=== PATIENT | male | born 1945 | race Caucasian/White ===

== ENCOUNTER 2022-01-18 15:15 | Emergency (ER) | payer MEDICARE ==
[2022-01-18 16:02] LABS: Absolute Neutrophil Ct (ANC) 2.23 x10^3/uL (1.4-6.9); Basophil (Absolute #) 0.06 x10^3/uL (0-0.4); Eosinophil % 9.6 % (0.00-5.0); Eosinophil (Absolute #) 0.38 x10^3/uL (0-0.5); Hematocrit 32.6 % (42-50); Hemoglobin 11.4 g/dL (12.5-18.0); Lymphocyte (Absolute #) 0.93 x10^3/uL (1.0-4.6); Lymphocytes % 23.6 % (24.0-44.0); Mean Cell Volume 90.6 fL (78-100); Mean Corpuscular Hemoglobin 31.7 pg (26-32); Mean Platelet Volume 8.7 fL (7.5-11.0); Monocyte (Absolute #) 0.33 x10^3/uL (0.0-1.3); Monocytes % 8.4 % (0.0-12.0); Neutrophil % 56.6 % (36.0-66.0); Platelet Count 187 x10^3/uL (150-450); Red Cell Distribution Width 12.6 % (11.5-14.0); White Blood Count 3.9 x10^3/uL (4.0-10.5)
--- NOTE | 2022-01-18 16:04 | ERPHSYRPT ---
- History of Present Illness Time Seen by Provider: 01/18/22 15:30 Source: patient Exam Limitations: no limitations Patient Subjective Stated Complaint: Head injury-fall Triage Nursing Assessment: Patient brought back to ED per w/c and transferred self to bed. Patient A+O X3. Patient's skin pink, warm and dry. Patient complains of fall in parking lot. Patient states he was getting his walker out of his car and tripped causing him to fall backwards and hit back of head. Patient denies pain or discomfort. small abrasion noted to raised area noted to back of head. Physician History: Patient is a 76-year-old male with a history of Parkinson's disease presents to our ED for evaluation of a fall. Patient was removing his walker out of his vehicle when he lost his balance and fell backwards. Patient hit the back of his head on the pavement. No LOC. No seizure. No neck pain. Cervical spine cleared clinically. Injury occurred just prior to arrival. Patient was coming to our hospital to undergo physical therapy. On physical exam it was observed that patient's bilateral lower extremities are swollen. 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 Patient otherwise feels well. No nausea or vomiting. No headache. Patient is on 1 aspirin daily. Patient otherwise is not on a blood thinner. at bedside. They voiced no other complaints or concerns at this time. Portions of this note were created with voice recognition technology. There may be grammatical, spelling, punctuation or sound alike errors Timing/Duration: today Severity: mild (Patient declined pain medication.) Associated Symptoms: denies symptoms Allergies/Adverse Reactions: Zlsiuud-VCF-RiY Reductase Inhibitor [Fvybgce-Tyl-Gvk Reductase Inhibitor] Allergy (Verified 02/07/16 19:53) Sulfa (Sulfonamide Antibiotics) Allergy (Verified 02/07/16 19:53) Home Medications: Aspirin 81 mg PO DAILY 02/07/16 [History] Carbidopa/Levodopa [Carbidopa-Levo 25-100 Tab] 1 tab PO TID 02/07/16 [History] Ezetimibe 10 mg [Zetia 10 MG] 10 mg PO DAILY 02/07/16 [History] Famotidine 40 mg PO DAILY 02/07/16 [History] Gabapentin 300 mg PO TID 02/07/16 [History] Lorazepam 1 mg [Ativan 1 MG] 1 mg PO TID 02/07/16 [History] Metoprolol Succinate 100 mg [Toprol Xl 100 MG] 100 mg PO DAILY 02/07/16 [History] Mometasone Furoate [Nasonex] 1 spray IN Q6-8HPRN PRN 02/07/16 [History] PARoxetine HCl [Paxil] 10 mg PO DAILY 02/07/16 [History] Primidone 50 MG [Mysoline 50Mg] 50 mg PO TID 02/07/16 [History] Red Yeast Rice Extract 2 tab PO DAILY 02/07/16 [History] Topiramate [Trokendi Xr] 100 mg PO DAILY 02/07/16 [History] Vit C/Vit E/Lutein/Min/[place]-3 [Ocuvite Softgel] 1 cap PO DAILY 02/07/16 [History] Hx Tetanus, Diphtheria Vaccination/Date Given: Yes Hx Influenza Vaccination/Date Given: No Hx Pneumococcal Vaccination/Date Given: No Immunizations Up to Date: Yes Travel Risk - International Travel Have you traveled outside of the country in past 3 weeks: No - Coronavirus Screening Are you exhibiting any of the following symptoms?: No Close contact with a COVID-19 positive Pt in past 14-21 Days: No - Vaccine Status Have you recieved a Covid-19 vaccination: Yes Internet Network Specialist: Moderna - Vaccination Dates Date of 2cond Vaccination (if applicable): na - Review of Systems Constitutional: No Symptoms, No Fever, No Chills Eyes: No Symptoms Ears, Nose, & Throat: No Symptoms Respiratory: No Symptoms, No Cough, No Dyspnea Cardiac: No Symptoms, No Chest Pain, No Edema, No Syncope Abdominal/Gastrointestinal: No Symptoms, No Abdominal Pain, No Nausea, No Vomiting, No Diarrhea Genitourinary Symptoms: No Symptoms, No Dysuria Musculoskeletal: No Symptoms, No Back Pain, No Neck Pain Skin: No Symptoms, No Rash Neurological: No Symptoms, No Dizziness, No Focal Weakness, No Sensory Changes Psychological: No Symptoms Endocrine: No Symptoms Hematologic/Lymphatic: No Symptoms Immunological/Allergic: No Symptoms All Other Systems: Reviewed and Negative - Past Medical History Pertinent Past Medical History: Yes Neurological History: Peripheral Neuropathy, Other Cardiac History: High Cholesterol, Hypertension Respiratory History: Asthma Endocrine Medical History: No Pertinent History Musculoskeletal History: Osteoarthritis GI Medical History: GERD Other Medical History: NEUROLOGIC DIAGNOSIS NOTED ABOVE. HX OF RIGHT SHOULDER SURGERY - Past Surgical History Past Surgical History: Yes Gastrointestinal: Cholecystectomy, Hernia Repair Other Surgical History: right carpal tunnel left leg surgery - Social History Smoking Status: Never smoker Exposure to second hand smoke: No Drug Use: none Patient Lives Alone: No - Nursing Vital Signs Nursing Vital Signs: Initial Vital Signs Temperature 97.8 F 01/18/22 15:26 Pulse Rate 66 01/18/22 15:26 Respiratory Rate 18 01/18/22 15:26 Blood Pressure 152/89 01/18/22 15:26 O2 Sat by Pulse Oximetry 99 01/18/22 15:26 Pain Scale Pain Intensity 0 - Physical Exam General Appearance: no apparent distress, alert Eye Exam: PERRL/EOMI, eyes nml inspection Ears, Nose, Throat Exam: normal ENT inspection, TMs normal, pharynx normal, moist mucous membranes Neck Exam: normal inspection, non-tender, supple, full range of motion Respiratory Exam: normal breath sounds, lungs clear, airway intact, No respiratory distress Cardiovascular Exam: regular rate/rhythm, normal heart sounds, normal peripheral pulses Gastrointestinal/Abdomen Exam: soft, normal bowel sounds, No tenderness, No mass Back Exam: normal inspection, normal range of motion, No CVA tenderness, No vertebral tenderness Extremity Exam: normal inspection, normal range of motion, pelvis stable, other (Patient is ambulatory with a slow shuffling gait consistent with history of Parkinson's disease.) Neurologic Exam: alert, oriented x 3, cooperative, normal mood/affect, nml cerebellar function, sensation nml, No motor deficits Skin Exam: normal color, warm, dry, No rash Lymphatic Exam: No adenopathy SpO2 Interpretation: normal SpO2: 99 O2 Delivery: Room Air - Course Nursing assessment & vital signs reviewed: Yes - CT Exams Head CT Interpretation: Tele-radiologist Report (Nonacute 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 Mild paranasal sinus disease. Posterior scalp hematoma) Ordered Tests: Active Orders 24 hr Category Date Time Status Chargemaster Specialist STAT Care 01/18/22 15:27 Active EKG-ER Only STAT Care 01/18/22 15:26 Active IV Insertion STAT Care 01/18/22 15:26 Active Pulse Oximetry (ED) STAT Care 01/18/22 15:26 Active HEAD WITHOUT CONTRAST [CT] Stat Exams 01/18/22 15:42 Completed CBC W DIFF Stat Lab 01/18/22 15:50 Completed CMP Stat Lab 01/18/22 15:50 Completed NT PRO BNP Stat Lab 01/18/22 15:50 Completed TROPONIN Q3H Lab 01/18/22 15:50 Completed TROPONIN Q3H Lab 01/18/22 18:30 Ordered TROPONIN Q3H Lab 01/18/22 21:30 Ordered TROPONIN Q3H Lab 01/19/22 00:30 Ordered TROPONIN Q3H Lab 01/19/22 03:30 Ordered UA W/RFX CULTURE Stat Lab 01/18/22 Ordered Lab/Rad Data: Laboratory Result Diagrams 01/18/22 15:50 01/18/22 15:50 Laboratory Results 01/18/22 01/18/22 01/18/22 Range/Units 15:50 15:50 15:50 WBC 3.9 L (4.0-10.5) x10^3/uL RBC 3.60 L (4.1-5.6) x10^6/uL Hgb 11.4 L (12.5-18.0) g/dL Hct 32.6 L (42-50) % MCV 90.6 (78-100) fL MCH 31.7 (26-32) pg MCHC 35.0 (32-36) g/dL RDW 12.6 (11.5-14.0) % Plt Count 187 (150-450) x10^3/uL MPV 8.7 (7.5-11.0) fL Gran % 56.6 (36.0-66.0) % Immature Gran % (Auto) 0.3 (0.00-0.4) % Nucleat RBC Rel Count 0.0 (0.00-0.1) % Eos # (Auto) 0.38 (0-0.5) x10^3/uL Immature Gran # (Auto) 0.01 (0.00-0.03) x10^3u/L Absolute Lymphs (auto) 0.93 L (1.0-4.6) x10^3/uL Absolute Monos (auto) 0.33 (0.0-1.3) x10^3/uL Absolute Nucleated RBC 0.00 (0.00-0.01) x10^3u/L Lymphocytes % 23.6 L (24.0-44.0) % Monocytes % 8.4 (0.0-12.0) % Eosinophils % 9.6 H (0.00-5.0) % Basophils % 1.5 (0.0-0.4) % Absolute Granulocytes 2.23 (1.4-6.9) x10^3/uL Basophils # 0.06 (0-0.4) x10^3/uL Sodium 130 L (137-145) mmol/L Potassium 4.0 (3.5-5.1) mmol/L Chloride 98 (98-107) mmol/L Carbon Dioxide 21 L (22-30) mmol/L Anion Gap 14.6 (5-15) MEQ/L BUN 14 (9-20) mg/dL Creatinine 0.99 (0.66-1.25) mg/dL Estimated GFR > 60.0 ML/MIN Glucose 130 H (74-106) mg/dL Calcium 8.7 (8.4-10.2) mg/dL Total Bilirubin 0.30 (0.2-1.3) mg/dL AST 36 (17-59) U/L ALT 14 (0-50) U/L Alkaline Phosphatase 67 (38-126) U/L Troponin I < 0.012 (0.000-0.034) ng/mL NT-Pro-B Natriuret Pep 144 (0-1800) pg/mL Serum Total Protein 6.4 (6.3-8.2) g/dL Albumin 4.1 (3.5-5.0) g/dL - Progress Progress: improved Progress Note: Case discussed with who feels patient is appropriate for discharge. Mild hyponatremia. However due to leg swelling we would not infuse IV fluids. Patient feels well he does not feel weak. CT head negative for acute intracranial pathology. Patient has a scalp hematoma/contusion. No laceration. No indication for laceration repair. Patient does have significant bilateral lower extremity swelling. is aware and is working on further evaluating and treating this condition. Patient is a fall risk. Patient still drives independently. I advised both patient and his were at the bedside that patient likely should not be driving at this point. Patient should not be ambulating without assistance especially during transitions such as pulling his walker out of his vehicle. states they have a follow-up visit with Dr. Mackey scheduled for next week. Portions of this note were created with voice recognition technology. There may be grammatical, spelling, punctuation or sound alike errors 01/18/22 17:01 Counseled pt/family regarding: diagnosis, need for follow-up, rad results - Departure Departure Disposition: Home Clinical Impression: Fall, Posterior scalp hematoma, Leukopenia, Normocytic anemia, Risk for falls, Hyponatremia Condition: Stable Critical Care Time: No Referrals: ROHIT MACKEY MD [Primary Care Provider] - Follow up/PCP as directed Additional Instructions: Discharge/Care Plan KEMAR HENSLEY was seen on 01/18/22 in the Emergency Room. The patient was cou nseled regarding Diagnosis,Lab results, Imaging studies, need for follow up and when to return to the Emergency Room. Prescriptions given: Discharge Note I have spoken with the patient and/or caregivers. I have explained the patient's condition, diagnosis and treatment plan based on the information available to me at this time. I have answered the patient's and/or caregiver's questions and addressed any concerns. The patient and/or caregivers have as good understanding of the patient's diagnosis, condition and treatment plan as can be expected at this point. The vital signs have been stable. The patient's condition is stable and appropriate for discharge from the emergency department. The patient will pursue further outpatient evaluation with the primary care physician or other designated or consulting physician as outlined in the discharge instructions. The patient and/or caregivers are agreeable to this plan of care and follow-up instructions have been explained in detail. The patient and/or caregivers have received these instruction. The patient/and or caregivers are aware that any significant change in condition or worsening of symptoms should prompt an immediate return to this or the closest emergency department or call 911.
--- NOTE | 2022-01-18 16:22 | XRAY ---
Indication: Posterior head injury following fall. Multiple contiguous axial images obtained through the head without contrast. Comparison: November 08, 2015. There is age-appropriate global atrophy and minimal periventricular degenerative micro-ischemia bilaterally. 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 No acute intracranial hemorrhage, abnormal extra-axial fluid collection, or mass effect. Fourth ventricles midline without hydrocephalus. New small posterior scalp hematoma near the vertex. Bony calvarium intact. Mild mucosal thickening both ethmoid sinuses. Mastoid air cells are clear. Impression: Again nonacute senile brain with old bilateral basal ganglia remote lacunar infarcts. Incidental mild paranasal sinus disease.
[2022-01-18 16:24] LABS: ALBUMIN 4.1 g/dL (3.5-5.0); ALKALINE PHOSPHATASE 67 U/L (38-126); ANION GAP 14.6 MEQ/L (5-15); BLOOD UREA NITROGEN 14 mg/dL (9-20); CHLORIDE 98 mmol/L (98-107); Calcium 8.7 mg/dL (8.4-10.2); Carbon Dioxide 21 mmol/L (22-30); Creatinine 1 0.99 mg/dL (0.66-1.25); EST GLOMERULAR FILTRATION RATE > 60.0 ML/MIN; Glucose 130 mg/dL (74-106); NT PRO BNP 144 pg/mL (0-1800); SGOT/AST 36 U/L (17-59); SGPT/ALT 14 U/L (0-50); SODIUM 130 mmol/L (137-145); Total Protein 6.4 g/dL (6.3-8.2)
[2022-01-18 17:20] VITALS: BP 148/85; PULSE 68; O2SAT 98
== END 2022-01-18 17:10 | disposition home or self-care (01) ==
LOC: ED 15:15
DX: S00.03XA Contusion of scalp, initial encounter (principal); W18.39XA Other fall on same level, initial encounter; Z91.81 History of falling; Y92.481 Parking lot as the place of occurrence of the external cause; D72.819 Decreased white blood cell count, unspecified; D64.9 Anemia, unspecified; E87.1 Hypo-osmolality and hyponatremia; G20 Parkinson's disease; E78.5 Hyperlipidemia, unspecified; I10 Essential (primary) hypertension; Z79.899 Other long term (current) drug therapy
CPT/HCPCS: 36415; 70450; 80053; 83880; 84484; 85025; 99284

== ENCOUNTER 2022-11-19 19:26 | Emergency (ER) | payer MEDICARE ==
--- NOTE | 2022-11-19 19:32 | ERPHSYRPT ---
- History of Present Illness Time Seen by Provider: 11/19/22 19:31 Source: patient, EMS, old records Exam Limitations: no limitations Physician History: This is a 77-year-old white male patient who has Parkinson disease and does have frequent falls. He is a patient of Dr. Mackey. Additional history came from the patient's spouse and the paramedics. Patient did not have a witnessed fall but the spouse heard a thump sound and the patient was on the ground and not a cting his usual self. Patient arrives to the emergency department stating that his overreacted because she was scared. Patient states that he does not have any pain anywhere. He does not have a headache. He does not have neck pain. He does not have chest pain. He does not have extremity pain. She does not have any abdominal pain. Patient has a history of peripheral neuropathy, elevated cholesterol, hypertension, asthma, gastroesophageal reflux disease and osteoarthritis. Patient arrives to the emergency department with a c-collar in place Occurred: just prior to arrival Reason for Fall: unknown Injuries/Pain Location: no injury (Patient has no specific complaints although he is mental status was altered at the scene) Loss of Consciousness: no loss of consciousness, dazed Severity of Pain-Max: none Severity of Pain-Current: none Modifying Factors: Improves With: nothing Associated Symptoms (Fall): denies symptoms Allergies/Adverse Reactions: Priqwbf-PJJ-GuN Reductase Inhibitor [Zexddax-Doi-Rnf Reductase Inhibitor] Allergy (Verified 11/19/22 19:44) Sulfa (Sulfonamide Antibiotics) Allergy (Verified 11/19/22 19:44) Home Medications: Aspirin 81 mg PO DAILY 02/07/16 [History] Carbidopa/Levodopa [Carbidopa-Levo 25-100 Tab] 1 tab PO TID 02/07/16 [History] Lorazepam 1 mg [Ativan 1 MG] 1 mg PO TID 02/07/16 [History] Metoprolol Succinate 100 mg [Toprol Xl 100 MG] 100 mg PO DAILY 02/07/16 [History] Mometasone Furoate [Nasonex] 1 spray IN Q6-8HPRN PRN 02/07/16 [History] PARoxetine HCL [Paxil] 10 mg PO DAILY 02/07/16 [History] Primidone 50 MG [Mysoline 50Mg] 50 mg PO TID 02/07/16 [History] Red Yeast Rice Extract 2 tab PO DAILY 02/07/16 [History] Vit C/Vit E/Lutein/Min/[place]-3 [Ocuvite Softgel] 1 cap PO DAILY 02/07/16 [History] Alirocumab [Praluent Pen] 75 mg SQ 2XW 11/19/22 [History] Hx Tetanus, Diphtheria Vaccination/Date Given: Yes Hx Influenza Vaccination/Date Given: No Hx Pneumococcal Vaccination/Date Given: No Travel Risk - International Travel Have you traveled outside of the country in past 3 weeks: No - Coronavirus Screening Are you exhibiting any of the following symptoms?: No Close contact with a COVID-19 positive Pt in past 14-21 Days: No - Vaccine Status Have you recieved a Covid-19 vaccination: Yes Anesthesia Attending: Moderna - Vaccination Dates Date of 2cond Vaccination (if applicable): na - Review of Systems Constitutional: No Symptoms Eyes: No Symptoms Ears, Nose, & Throat: No Symptoms Respiratory: No Symptoms Cardiac: No Symptoms Abdominal/Gastrointestinal: No Symptoms Genitourinary Symptoms: No Symptoms Musculoskeletal: No Symptoms Skin: No Symptoms Neurological: No Symptoms Psychological: No Symptoms Endocrine: No Symptoms Hematologic/Lymphatic: No Symptoms Immunological/Allergic: No Symptoms All Other Systems: Reviewed and Negative - Past Medical History Pertinent Past Medical History: Yes Neurological History: Peripheral Neuropathy, Other Cardiac History: High Cholesterol, Hypertension Respiratory History: Asthma Endocrine Medical History: No Pertinent History Musculoskeletal History: Osteoarthritis GI Medical History: GERD Other Medical History: NEUROLOGIC DIAGNOSIS NOTED ABOVE. HX OF RIGHT SHOULDER SURGERY - Past Surgical History Past Surgical History: Yes Gastrointestinal: Cholecystectomy, Hernia Repair Other Surgical History: right carpal tunnel left leg surgery - Social History Smoking Status: Never smoker Exposure to second hand smoke: No Drug Use: none Patient Lives Alone: No - Nursing Vital Signs Nursing Vital Signs: Initial Vital Signs Temperature 97.0 F 11/19/22 19:27 Pulse Rate 56 L 11/19/22 19:27 Respiratory Rate 14 11/19/22 19:27 Blood Pressure 96/51 11/19/22 19:27 O2 Sat by Pulse Oximetry 100 11/19/22 19:27 Pain Scale Pain Intensity 0 - [place] Coma Score Best Eye Response ([place]): (4) open spontaneously Best Verbal Response ([place]): (5) oriented Best Motor Response ([place]): (6) obeys commands [place] Total: 15 - Physical Exam General Appearance: no apparent distress, alert Head Injury: no evidence of injury Eye Exam: PERRL/EOMI, eyes nml inspection ENT Exam: airway nml, nml ext.inspection, No evidence of ENT injury Neck Exam: trachea midline, c-collar in place Respiratory/Chest Exam: normal breath sounds, No chest tenderness, No respiratory distress, No ecchymosis, No crepitus Cardiovascular Exam: normal heart sounds, regular rate/rhythm Gastrointestinal Exam: soft, normal bowel sounds, No tenderness Rectal Exam: not done Back Exam: normal inspection, normal range of motion, No CVA tenderness, No vertebral tenderness Extremity Exam: normal inspection, normal range of motion, pelvis stable Neurologic Exam: alert, oriented x 3, cooperative, 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 This was interpreted by me.) Ordered Tests: Active Orders 24 hr Category Date Time Status CERVICAL SPINE WO CONTRAST [CT] Stat Exams 11/19/22 19:42 Taken HEAD WITHOUT CONTRAST [CT] Stat Exams 11/19/22 19:42 Taken CBC W DIFF Stat Lab 11/19/22 20:25 Completed CMP Stat Lab 11/19/22 20:25 Completed UA W/RFX UR CULTURE Stat Lab 11/19/22 21:38 Completed Urine Triage Profile Stat Lab 11/19/22 21:38 Completed Lab/Rad Data: Laboratory Result Diagrams 11/19/22 20:25 11/19/22 20:25 Laboratory Results 11/19/22 11/19/22 11/19/22 Range/Units 21:38 21:38 20:25 WBC (4.0-10.5) x10^3/uL RBC (4.1-5.6) x10^6/uL Hgb (12.5-18.0) g/dL Hct (42-50) % MCV (78-100) fL MCH (26-32) pg MCHC (32-36) g/dL RDW (11.5-14.0) % Plt Count (150-450) x10^3/uL MPV (7.5-11.0) fL Gran % (36.0-66.0) % Immature Gran % (Auto) (0.00-0.4) % Nucleat RBC Rel Count (0.00-0.1) % Eos # (Auto) (0-0.5) x10^3/uL Immature Gran # (Auto) (0.00-0.03) x10^3u/L Absolute Lymphs (auto) (1.0-4.6) x10^3/uL Absolute Monos (auto) (0.0-1.3) x10^3/uL Absolute Nucleated RBC (0.00-0.01) x10^3u/L Lymphocytes % (24.0-44.0) % Monocytes % (0.0-12.0) % Eosinophils % (0.00-5.0) % Basophils % (0.0-0.4) % Absolute Granulocytes (1.4-6.9) x10^3/uL Basophils # (0-0.4) x10^3/uL Sodium (137-145) mmol/L Potassium (3.5-5.1) mmol/L Chloride (98-107) mmol/L Carbon Dioxide (22-30) mmol/L Anion Gap (5-15) MEQ/L BUN (9-20) mg/dL Creatinine (0.66-1.25) mg/dL Estimated GFR ML/MIN Glucose (74-106) mg/dL Calcium (8.4-10.2) mg/dL Total Bilirubin (0.2-1.3) mg/dL AST (17-59) U/L ALT (0-50) U/L Alkaline Phosphatase (38-126) U/L Ammonia < 9 L (9-30) umol/L Serum Total Protein (6.3-8.2) g/dL Albumin (3.5-5.0) g/dL Urine Color Yellow (Yellow) Urine Appearance Clear (Clear) Urine pH 8.0 (4.6-8.0) Ur Specific [place] 1.010 (1.005-1.030) Urine Protein Negative (Negative) Urine Glucose (UA) Negative (Negative) mg/dL Urine Ketones Negative (Negative) Urine Blood Negative (Negative) Urine Nitrite Negative (Negative) Urine Bilirubin Negative (Negative) Urine Urobilinogen 0.2 (0.2) mg/dL Ur Leukocyte Esterase Negative (Negative) U Hyaline Cast (Auto) 0-2 (0-2) /LPF Urine Microscopic RBC 0-2 (0-5) /HPF Urine Microscopic WBC 0-2 (0-5) /HPF Ur Epithelial Cells Rare (None Seen) /HPF Urine Bacteria Rare A (None Seen) /HPF Urine Culture Reflexed NO (NO) Urine Opiates Level NEGATIVE (NEGATIVE) Ur Methadone NEGATIVE (NEGATIVE) Urine Barbiturates POSITIVE (NEGATIVE) Ur Phencyclidine (PCP) NEGATIVE (NEGATIVE) Urine Amphetamine NEGATIVE (NEGATIVE) U Benzodiazepine Level NEGATIVE (NEGATIVE) Urine Cocaine NEGATIVE (NEGATIVE) Urine Marijuana (THC) NEGATIVE (NEGATIVE) 11/19/22 11/19/22 Range/Units 20:25 20:25 WBC 4.9 (4.0-10.5) x10^3/uL RBC 3.76 L (4.1-5.6) x10^6/uL Hgb 11.6 L (12.5-18.0) g/dL Hct 34.0 L (42-50) % MCV 90.4 (78-100) fL MCH 30.9 (26-32) pg MCHC 34.1 (32-36) g/dL RDW 13.3 (11.5-14.0) % Plt Count 207 (150-450) x10^3/uL MPV 9.0 (7.5-11.0) fL Gran % 71.9 H (36.0-66.0) % Immature Gran % (Auto) 0.4 (0.00-0.4) % Nucleat RBC Rel Count 0.0 (0.00-0.1) % Eos # (Auto) 0.23 (0-0.5) x10^3/uL Immature Gran # (Auto) 0.02 (0.00-0.03) x10^3u/L Absolute Lymphs (auto) 0.75 L (1.0-4.6) x10^3/uL Absolute Monos (auto) 0.35 (0.0-1.3) x10^3/uL Absolute Nucleated RBC 0.00 (0.00-0.01) x10^3u/L Lymphocytes % 15.3 L (24.0-44.0) % Monocytes % 7.1 (0.0-12.0) % Eosinophils % 4.7 (0.00-5.0) % Basophils % 0.6 (0.0-0.4) % Absolute Granulocytes 3.53 (1.4-6.9) x10^3/uL Basophils # 0.03 (0-0.4) x10^3/uL Sodium 131 L (137-145) mmol/L Potassium 3.8 (3.5-5.1) mmol/L Chloride 98 (98-107) mmol/L Carbon Dioxide 22 (22-30) mmol/L Anion Gap 15.0 (5-15) MEQ/L BUN 13 (9-20) mg/dL Creatinine 1.04 (0.66-1.25) mg/dL Estimated GFR > 60.0 ML/MIN Glucose 124 H (74-106) mg/dL Calcium 8.7 (8.4-10.2) mg/dL Total Bilirubin 0.30 (0.2-1.3) mg/dL AST 38 (17-59) U/L ALT 9 (0-50) U/L Alkaline Phosphatase 66 (38-126) U/L Ammonia (9-30) umol/L Serum Total Protein 6.6 (6.3-8.2) g/dL Albumin 4.0 (3.5-5.0) g/dL Urine Color (Yellow) Urine Appearance (Clear) Urine pH (4.6-8.0) Ur Specific [place] (1.005-1.030) Urine Protein (Negative) Urine Glucose (UA) (Negative) mg/dL Urine Ketones (Negative) Urine Blood (Negative) Urine Nitrite (Negative) Urine Bilirubin (Negative) Urine Urobilinogen (0.2) mg/dL Ur Leukocyte Esterase (Negative) U Hyaline Cast (Auto) (0-2) /LPF Urine Microscopic RBC (0-5) /HPF Urine Microscopic WBC (0-5) /HPF Ur Epithelial Cells (None Seen) /HPF Urine Bacteria (None Seen) /HPF Urine Culture Reflexed (NO) Urine Opiates Level (NEGATIVE) Ur Methadone (NEGATIVE) Urine Barbiturates (NEGATIVE) Ur Phencyclidine (PCP) (NEGATIVE) Urine Amphetamine (NEGATIVE) U Benzodiazepine Level (NEGATIVE) Urine Cocaine (NEGATIVE) Urine Marijuana (THC) (NEGATIVE) - Progress Progress: improved, re-examined Progress Note: 11/19/22 21:36 CAT scan of the head without contrast shows no acute intracranial abnormality. There is a nonacute senile brain present. 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 CAT scan of the cervical spine without contrast shows no acute fracture or subluxation. There are chronic changes noted This patient's medical issue is of moderate complexity. The level of complexity in the work-up performed was based on review of the patient's past medical history, additional history obtained from the paramedics and the patient's spouse, review of the patient's medication list, review of the patient's drug allergy list, history of present illness and physical findings on examination. The patient states he has no pain whatsoever. He arrives via paramedics to the emergency department with a c-collar in place. After the above CT scan results returned I remove the CAT scan of the cervical spine. He has no neck pain he has no headache. I reexamined him and there is no evidence of any fractured limbs. He has no chest pain. He has no abdominal pain. His back examination is normal. There are no abrasions or lacerations visible. Patient's spouse sta valente that he had fallen from a sitting position forward. I reviewed the lab results which were CBC, CMP and they have not changed significantly from the previous evaluation in the emergency department. We are awaiting his urinalysis before discharge to home. Patient's spouse feels comfortable having him go home and the patient wants to go home. Counseled pt/family regarding: lab results, diagnosis, need for follow-up, rad results Medical Desision Making - Independent Historian Additional History obtained from: Spouse - Discussion of managment Reviewed:: Test results Agreed on:: Treatment plan, need for follow-up - Diagnostic Testing Radiological Interpretation: Reviewed by me - Risk of complications Low Risk: Low risk of morbidity from additional dx testing or treatment - Departure Departure Disposition: Home Clinical Impression: Fall with no significant injury Condition: Stable Critical Care Time: No Referrals: ROHIT MACKEY MD [Primary Care Provider] - Follow up/PCP as directed Additional Instructions: Drink plenty of fluids. Take your medications as prescribed. Follow-up with your primary care provider for further evaluation and management.
[2022-11-19 20:29] LABS: Absolute Neutrophil Ct (ANC) 3.53 x10^3/uL (1.4-6.9); BASOPHIL % 0.6 % (0.0-0.4); Basophil (Absolute #) 0.03 x10^3/uL (0-0.4); Eosinophil % 4.7 % (0.00-5.0); Eosinophil (Absolute #) 0.23 x10^3/uL (0-0.5); Hemoglobin 11.6 g/dL (12.5-18.0); IMMATURE GRAN # 0.02 x10^3u/L (0.00-0.03); IMMATURE GRAN % 0.4 % (0.00-0.4); Lymphocyte (Absolute #) 0.75 x10^3/uL (1.0-4.6); Lymphocytes % 15.3 % (24.0-44.0); Mean Cell Volume 90.4 fL (78-100); Mean Corpuscular Hemoglobin 30.9 pg (26-32); Mean Corpuscular Hgb Concent. 34.1 g/dL (32-36); Monocyte (Absolute #) 0.35 x10^3/uL (0.0-1.3); Monocytes % 7.1 % (0.0-12.0); Neutrophil % 71.9 % (36.0-66.0); Platelet Count 207 x10^3/uL (150-450); Red Blood Count 3.76 x10^6/uL (4.1-5.6); Red Cell Distribution Width 13.3 % (11.5-14.0); White Blood Count 4.9 x10^3/uL (4.0-10.5)
[2022-11-19 20:48] LABS: ALKALINE PHOSPHATASE 66 U/L (38-126); BLOOD UREA NITROGEN 13 mg/dL (9-20); CHLORIDE 98 mmol/L (98-107); Calcium 8.7 mg/dL (8.4-10.2); Carbon Dioxide 22 mmol/L (22-30); Creatinine 1 1.04 mg/dL (0.66-1.25); EST GLOMERULAR FILTRATION RATE > 60.0 ML/MIN; Glucose 124 mg/dL (74-106); Potassium 3.8 mmol/L (3.5-5.1); SGOT/AST 38 U/L (17-59); SGPT/ALT 9 U/L (0-50); SODIUM 131 mmol/L (137-145); Total Protein 6.6 g/dL (6.3-8.2)
[2022-11-19 21:31] VITALS: BP 149/74
[2022-11-19 22:10] LABS: Amphetamine,Urine NEGATIVE (NEGATIVE); Barbiturate,Urine POSITIVE (NEGATIVE); Benzodiazepine,Urine NEGATIVE (NEGATIVE); Cocaine,Urine NEGATIVE (NEGATIVE); Methadone,Urine NEGATIVE (NEGATIVE); Opiate,Urine NEGATIVE (NEGATIVE); PCP,Urine NEGATIVE (NEGATIVE); THC,Urine NEGATIVE (NEGATIVE)
[2022-11-19 22:13] LABS: Appearance Clear (Clear); Bilirubin Negative (Negative); Blood Negative (Negative); Glucose, Urine Negative (Negative); Ketones Negative (Negative); Leukocyte Esterase Negative (Negative); Nitrite Negative (Negative); Protein,Urine Dip Negative (Negative); RBC 0-2 /HPF (0-5); Urobilinogen 0.2 mg/dL (0.2); WBC 0-2 /HPF (0-5)
[2022-11-19 22:25] LABS: ADD URINE CULTURE? NO (NO); Bacteria Rare /HPF (None Seen); Epithelial Cells Rare /HPF (None Seen); Hyaline Casts 0-2 /LPF (0-2)
[2022-11-19 22:48] VITALS: PULSE 64; O2SAT 96
--- NOTE | 2022-11-20 08:34 | XRAY ---
Indication: Status post fall/trauma. Multiple contiguous axial images obtained through the head without contrast. Comparison: January 18, 2022 Again age-appropriate global atrophy, minimal periventricular degenerative micro-ischemia bilaterally, and old bilateral basal ganglion lacunar infarcts. No acute intracranial hemorrhage, abnormal extra-axial fluid collection, or mass effect. Fourth ventricle is midline without hydrocephalus. Bony calvarium intact. There is now partial opacification of the inferior right mastoid air cells presumed inflammatory. Remaining visualized paranasal sinuses and mastoid air cells are clear. Impression: 1. Continued nonacute senile brain with old bilateral basal ganglia lacunar infarcts. 2. Incidental partial opacification right mastoid air cells presumed inflammatory.
--- NOTE | 2022-11-20 08:38 | XRAY ---
Indication: Status post fall/trauma. Multiple contiguous axial images obtained through the cervical spine. Sagittal and coronal reformatted images obtained. Comparison: None Age-related osteopenia. Axial images negative for acute fracture, suspicious bony lesions, or spinal canal stenosis. Minimal C5-C7 degenerative vacuum disc phenomena. Mild/moderate multilevel bilateral degenerative facet hypertrophy. Sagittal and coronal reformatted images demonstrates normal cervical lordosis with 1-2 mm anterolisthesis of C4 on C5 on C6 on C7. No acute compression fracture or jumped facet. Normal appearing craniocervical junction. Visualized noncontrasted soft tissues are unremarkable. Impression: 1. Negative acute fracture. 2. Osteopenia, multilevel degenerative spondylosis, and minimal grade 1 anterolisthesis C4-C7 levels.
== END 2022-11-19 22:55 | disposition home or self-care (01) ==
LOC: ED 19:26
DX: Z04.3 Encounter for examination and observation following other accident (principal); Z91.81 History of falling; G20 Parkinson's disease; E78.5 Hyperlipidemia, unspecified; I10 Essential (primary) hypertension; Z79.899 Other long term (current) drug therapy
CPT/HCPCS: 36415; 70450; 72125; 80053; 80307; 81001; 82140; 85025; 99283

== ENCOUNTER 2024-09-27 13:32 | Emergency (ER) | payer MEDICARE ==
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
[2024-09-27 14:33] LABS: Absolute Neutrophil Ct (ANC) 2.18 x10^3/uL (1.78-5.38); BASOPHIL % 0.9 % (0.2-1.2); Basophil (Absolute #) 0.03 x10^3/uL (0.01-0.08); Eosinophil % 8.8 % (0.8-7.0); Hemoglobin 11.1 g/dL (13.7-17.5); IMMATURE GRAN # 0.01 x10^3u/L (0.001-0.031); IMMATURE GRAN % 0.3 % (0.001-0.429); Lymphocyte (Absolute #) 0.64 x10^3/uL (1.32-3.57); Lymphocytes % 18.8 % (21.8-53.1); Mean Cell Volume 92.4 fL (79.0-92.2); Mean Corpuscular Hemoglobin 31.1 pg (25.7-32.2); Mean Corpuscular Hgb Concent. 33.6 g/dL (32.3-36.5); Mean Platelet Volume 9.5 fL (9.4-12.4); Monocyte (Absolute #) 0.24 x10^3/uL (0.30-0.82); Monocytes % 7.1 % (5.3-12.2); Neutrophil % 64.1 % (34.0-67.9); Platelet Count 203 x10^3/uL (163-337); Red Blood Count 3.57 x10^6/uL (4.63-6.08); Red Cell Distribution Width 13.8 % (11.6-14.4); White Blood Count 3.4 x10^3/uL (4.23-9.07)
[2024-09-27 14:47] LABS: ACETAMINOPHEN < 10 ug/ml (10-30); ALBUMIN 4.4 g/dL (3.5-5.0); ALKALINE PHOSPHATASE 65 U/L (38-126); ANION GAP 12.7 MEQ/L (5-15); BLOOD UREA NITROGEN 15 mg/dL (9-20); CHLORIDE 110 mmol/L (98-107); Calcium 9.1 mg/dL (8.4-10.2); Carbon Dioxide 23 mmol/L (22-30); Creatinine 1 0.91 mg/dL (0.66-1.25); EST GLOMERULAR FILTRATION RATE 84.7 ML/MIN; ETHYL ALCOHOL < 10 mg/dL (0-10); Glucose 105 mg/dL (74-106); Potassium 4.2 mmol/L (3.5-5.1); SALICYLATE < 1.0 mg/dL (2-20); SGOT/AST 31 U/L (17-59); SGPT/ALT 9 U/L (0-50); SODIUM 141 mmol/L (135-145); Total Protein 6.8 g/dL (6.3-8.2)
[2024-09-27 15:12] LABS: INFLUENZA A NEGATIVE (NEGATIVE); INFLUENZA B NEGATIVE (NEGATIVE); RESPIRATORY SYNCTIAL VIRUS NEGATIVE (NEGATIVE); SARS-CoV-2 Xpert Express NEGATIVE (NEGATIVE)
[2024-09-27 15:47] LABS: Appearance Clear (Clear); Bacteria None Seen /HPF (None Seen); Bilirubin Negative (Negative); Blood Negative (Negative); Epithelial Cells None Seen /HPF (None Seen); Glucose, Urine Negative (Negative); Hyaline Casts NONE SEEN /LPF (0-2); Ketones Negative (Negative); Leukocyte Esterase Negative (Negative); Nitrite Negative (Negative); Ph 7.5 (4.6-8.0); Protein,Urine Dip Trace (Negative); RBC 0-2 /HPF (0-5); Urobilinogen 0.2 mg/dL (0.2); WBC 0-2 /HPF (0-5)
[2024-09-27 15:56] LABS: Amphetamine,Urine NEGATIVE (NEGATIVE); Barbiturate,Urine POSITIVE (NEGATIVE); Benzodiazepine,Urine NEGATIVE (NEGATIVE); Cocaine,Urine NEGATIVE (NEGATIVE); Methadone,Urine NEGATIVE (NEGATIVE); Opiate,Urine NEGATIVE (NEGATIVE); PCP,Urine NEGATIVE (NEGATIVE); THC,Urine NEGATIVE (NEGATIVE)
[2024-09-27 22:07] VITALS: RESP 18
[2024-09-28] MEDS ORDERED: MYSOLINE 50MG ONE (02:06)
[2024-09-28] MEDS ORDERED: Sinemet CR 50/200 MG PO ONE (02:06)
[2024-09-28] MEDS ORDERED: Mirapex 0.5 MG Tablet ONE (02:06)
[2024-09-28] MEDS: Mirapex 0.5 MG Tablet PO SCH (02:18)
[2024-09-28] MEDS: MYSOLINE 50MG PO SCH (02:19)
[2024-09-28] MEDS: Sinemet CR 50/200 MG PO SCH (02:19)
[2024-09-28] MEDS: Trileptal 300 MG Tablet PO SCH (02:20)
[2024-09-28 07:40] VITALS: BP 115/79; PULSE 82; TEMP 98.1; O2SAT 98
[2024-09-28] MEDS ORDERED: Ativan 2 MG/1 ML VIAL ONE (08:43)
[2024-09-28] MEDS: Ativan 2 MG/1 ML VIAL IM ONE (08:54)
== END 2024-09-28 09:10 ==
LOC: ED 13:32
DX: F22 Delusional disorders (principal); F29 Unspecified psychosis not due to a substance or known physiological condition; F03.90 Unspecified dementia, unspecified severity, without behavioral disturbance, psychotic disturbance, mood disturbance, and anxiety; E78.5 Hyperlipidemia, unspecified; I10 Essential (primary) hypertension; Z79.899 Other long term (current) drug therapy
CPT/HCPCS: 0241U; 36415; 80053; 80143; 80179; 80307; 81001; 82077; 85025; 93005; 93041; 96372; 99285; Q3014; J2060; A9270-GY